=== PATIENT | female | born 1970 | race African-American/Black ===

== ENCOUNTER 2025-04-16 19:31 | Emergency (ER) | payer OTHER, SELFPAY ==
[2025-04-16 19:32] VITALS: BP 169/85
[2025-04-16 23:15] LABS: Urine Albumin Negative (Neg - Trace); Urine Bilirubin Negative (Negative); Urine Character Clear (Clear); Urine Color Yellow; Urine Glucose Negative (Negative); Urine Ketone Negative (Negative); Urine Leukocyte Negative (Negative); Urine Nitrite Negative (Negative); Urine Occult Blood Negative (Negative); Urine Urobilinogen Negative (Neg - 1+)
[2025-04-16 23:17] LABS: % Basophils 0.6 % (0-2); % Eosinophils 1.4 % (0-6); % Immature Granulocytes 0.3 % (0-0.5); % Lymphocytes 24.2 % (20.5-51.1); % Neutrophils 64.5 % (42.2-75.2); Absolute Basophils 0.1 10^3/uL (0-0.2); Absolute Eosinophils 0.1 10^3/uL (0-0.7); Absolute Lymphocytes 2.3 10^3/uL (1.2-3.4); Absolute Monocytes 0.9 10^3/uL (0.1-0.6); Absolute Neutrophils 6.2 10^3/uL (1.4-6.5); Hematocrit 41.7 % (37.0-47.0); Hemoglobin 14.2 g/dL (12.0-16.0); Mean Corp Hgb Conc. 34.1 g/dL (33.0-37.0); Mean Corpuscular Hgb 27.7 pg (27.0-31.0); Mean Corpuscular Volume 81.4 fL (81.0-99.0); Mean Platelet Volume 9.5 fL (7.4-10.4); Nucleated Red Blood Cells % 0 %; Platelet Count 231 10^3/uL (130-400); Red Blood Cell Count 5.12 10^6/uL (4.20-5.40); Red Cell Dist. Width 14.5 % (11.5-14.5); White Blood Cell Count 9.7 10^3/uL (4.8-10.8)
[2025-04-16 23:37] LABS: ALT (SGPT) 22 U/L (0-35); AST (SGOT) 17 U/L (14-36); Albumin 3.9 g/dl (3.5-5.0); Alkaline Phosphatase 93 U/L (38-126); Blood Urea Nitrogen 9 mg/dl (7-17); Calcium 8.9 mg/dl (8.4-10.2); Carbon Dioxide 26 mmol/L (22-30); Chloride 109 mmol/L (98-107); Glucose 99 mg/dl (70-99); Lipase 38 U/L (23-300); Potassium 3.9 mmol/L (3.5-5.1); Sodium 139 mmol/L (135-145); Total Bilirubin 0.7 mg/dl (0.2-1.3); Total Protein 6.7 g/dl (6.3-8.2); eGFR > 60.00
--- NOTE | 2025-04-16 23:43 | ED.GENMED ---
History of Present Illness
<Alissa Terrazas NP - Last Filed: 04/19/25 21:47>
General
Chief Complaint: Abdominal Pain
Source: patient
Exam Limitations: none
Time Seen by Provider: 04/16/25 22:19
Nursing documentation reviewed up to this point in time: agreed with
History of Present Illness
History of Present Illness:
Patient to ED with complaint of left sided abd. pain. Symptoms started 3 days ago. Reports nausea, no v/d. States she is prescribed Monjaro for weight management. Sent to ED by PCP wtih concern for liver/pancreas source.
Past History
<Alissa Terrazas NP - Last Filed: 04/19/25 21:47>
Past History
ED Past Medical History: Other
ED Past Surgical History: Other (gastric band)
Social History
Tobacco: Non-smoker
Alcohol: Other
Drug: None
Personal: Other
Living: with family
Employment: Employed
Family History
Family History: Other
Review of Systems
<Alissa Terrazas NP - Last Filed: 04/19/25 21:47>
Review of Systems
Allergies reviewed?: Yes
All Other Systems: ROS reviewed and negative except as documented in HPI and ROS
Constitutional: Reports no symptoms
EENT: Reports no symptoms
Respiratory: Reports no symptoms
Cardiac: Reports no symptoms
ABD/GI: Reports abdominal pain (left sided abd. pain) and nausea
: Reports no symptoms
Musculoskeletal: Reports no symptoms
Skin: Reports no symptoms
Neurological: Reports no symptoms
Psychiatric: Reports no symptoms
Phy Exam
<Alissa Terrazas NP - Last Filed: 04/19/25 21:47>
General Physical Exam
General Presentation: moderate distress
General age: appears stated age
General Skin: warm and dry
General Habitus: normal
General Mental: alert
Cardiovascular Exam
Cardiovascular Exam: regular rate/rhythm and no edema
Gastrointestinal Exam
Gastrointestinal Exam: normal bowel sounds, soft, no organomegaly, no pulsatile mass, non distended and no cva tenderness
Palpation: left upper quadrant: Moderate tenderness, left lower quadrant: Moderate tenderness, right upper quadrant: No tenderness and right lower quadrant: No tenderness
Musculoskeletal Exam
Musculoskeletal Exam: full ROM and neuro vasc intact
Skin Exam
Skin Exam: normal color, warm/dry and no rash
Psychiatric Exam
Psychiatric Exam: normal mood/affect
Course
<Alissa Terrazas NP - Last Filed: 04/19/25 21:47>
Orders/Labs/Results
Orders:
Orders
04/16/25 23:05
Complete Blood Count/With Diff Urgent
04/16/25 23:08
Comprehensive Metabolic Panel Urgent
Lipase Urgent
Urinalysis Reflex To Culture Urgent
Date Specimen was Collected: 04/16/25
Time Specimen was Collected: 23:06
Iohexol [Omnipaque] See Protocol PO NOW STA
04/17/25
CT Abd/pelvis W Iv Cont Urgent
Reason For Exam: left abd pain
Abnormal Lab Results
04/16/25 04/16/25
23:05 23:08
Absolute Monos (auto) 0.9 H 10^3/uL
(0.1-0.6)
Chloride 109 H mmol/L
(98-107)
04/16/25 23:05
04/16/25 23:08
Vital Signs
Initial and Last Documented VS:
Initial Vital Signs
Temp Pulse Resp BP Pulse Ox
98.8 F 82 16 169/85 99
04/16/25 19:32 04/16/25 19:32 04/16/25 19:32 04/16/25 19:32 04/16/25 19:32
Last Documented Vital Signs
Temp Pulse Resp BP Pulse Ox
98.8 F 80 16 165/79 99
04/16/25 19:32 04/17/25 03:21 04/17/25 03:21 04/17/25 03:21 04/17/25 03:21
<Gerald Sullivan, DO - Last Filed: 04/17/25 02:57>
Orders/Labs/Results
Orders:
Orders
04/16/25 23:05
Complete Blood Count/With Diff Urgent
04/16/25 23:08
Comprehensive Metabolic Panel Urgent
Lipase Urgent
Urinalysis Reflex To Culture Urgent
Date Specimen was Collected: 04/16/25
Time Specimen was Collected: 23:06
Iohexol [Omnipaque] See Protocol PO NOW STA
04/17/25
CT Abd/pelvis W Iv Cont Urgent
Reason For Exam: left abd pain
Abnormal Lab Results
04/16/25 04/16/25
23:05 23:08
Absolute Monos (auto) 0.9 H 10^3/uL
(0.1-0.6)
Chloride 109 H mmol/L
(98-107)
04/16/25 23:05
04/16/25 23:08
Vital Signs
Initial and Last Documented VS:
Initial Vital Signs
Temp Pulse Resp BP Pulse Ox
98.8 F 82 16 169/85 99
04/16/25 19:32 04/16/25 19:32 04/16/25 19:32 04/16/25 19:32 04/16/25 19:32
Last Documented Vital Signs
Temp Pulse Resp BP Pulse Ox
98.8 F 80 16 165/79 99
04/16/25 19:32 04/17/25 03:21 04/17/25 03:21 04/17/25 03:21 04/17/25 03:21
<Gerald Sullivan DO - Last Filed: 04/17/25 02:57>
*Pulse Oximetry
Patient hypoxic: no (Pulse ox is 97% on room air)
*Critical Care Note
Total Time (30-74mins, 75-104mins- exclusive of procedures): 31 (Critical care statement: A total of 31 minutes of critical care time was provided for this patient. This time is separate from time utilized to perform the aforementioned documented
procedures. Aggregate critical care time includes only time during which I was engaged in work directl)
<Gerald Sullivan DO - Last Filed: 04/17/25 02:57>
Update Note
Update Note:
NAME: ROSLYN MARKS
DATE OF EXAM: 04/17/2025
Patient No: [id number]
Physician: JOSE
Date of : 1970
Past Medical History (entered by Technologist):
Reason For Exam (entered by Technologist):
Other Notes (entered by Technologist): Pt states she's been on Monjaro since August, c/o abd pain since Sunday. Denies N/V, denies diarrhea.
Additional Information (per [facility]):
CT ABDOMEN AND PELVIS WITH IV CONTRAST
Comparison: None available
IMPRESSION:
--Gastric lap band is present. Phi angle is borderline elevated at approximately 60 degrees, which can indicate some degree of slippage.
--There is a discontinuity of the tubing in the left anterior abdomen just deep to the body wall (series 201, image 38) with surrounding loculated fluid, measuring approximately 8.0 x 4.1 x 7.9 cm. This suggests there is likely leakage of fluid
from the tube discontinuity. Can correlate clinically for infected collection.
--Recommend bariatric surgical referral/consultation for further management as removal or revision of the tubing and lap band is likely warranted.
Additional small volume free fluid in the lower abdomen and pelvis. No free air.
No evidence for bowel obstruction. Appendix is normal.
Suggestion of hepatic steatosis.
Pancreas, gallbladder, and kidneys are unremarkable.
Hysterectomy.
Report sent at 1:42 AM ET. If there are any questions, please contact [facility] at [phone].
Spoke with Dr Miller, having to gastroenterology. We reviewed the CT scan findings. He feels that it is safe to send her home. There is an appointment scheduled on Sunday. We will give the patient a copy of her CD and [facility] report.
Patient to follow-up
ED Attending Note
<Alissa Terrazas NP - Last Filed: 04/19/25 21:47>
-
Portions of this chart may have been created with voice recognition software.� Occasional wrong word or��sound alike� substitutions may have occurred due to the inherent limitations of voice recognition software.
Discharge Plan
Departure
Patient Disposition: Home (Routine Discharge)
Date of Disposition: 04/17/25
Time of Disposition: 02:53
Patient with high blood pressure during this ER visit?: No
Condition: Good
Discharge Problem:
Abdominal pain
Instructions: Abdominal Pain
Prescriptions:
No Action
prednisone 20 mg tablet
20 mg PO DAILY 4 Days Qty: 6 0RF
Rx Instructions:
Take 2 tablets on Day 1 and Day 2
Take 1 tablet on Day 3 and Day 4
cyclobenzaprine 10 mg tablet
10 mg PO TIDPRN PRN (Reason: muscle spasm) Qty: 13 0RF
Referrals:
Esa Jacobo MD [Family Provider, Family Practice] - Tomorrow
Activity Restrictions/Additional Instructions:
Return to the emergency department immediately for any changes in/worsening of your symptoms
Please bring the CD provided to your appointment with gastroenterology on Sunday.
Thank You for choosing [facility].
It was a pleasure meeting you and taking part in your care. We hope for your continued healing and wellness.
Please read discharge instructions in their entirety. However, they are for general education and may not describe your exact diagnosis at discharge. Information on your ER visit and medical conditions were discussed with you along with appropriate
follow up information...
If indicated, please take your medications as instructed and indicated on discharge paperwork.
Please schedule a follow up appointment as directed. Call to schedule an appointment
Please return to the emergency department with ANY change in, persisting, or worsening of symptoms. If any of your symptoms do not improve, or persist, or become more severe within 6-12 hours, please return to the emergency department for further
care.
Please return to the emergency department if you develop a headache, neck pain/stiffness, fever greater than 100.4F, chest pain, shortness of breath, persistent nausea, vomiting, slurred speech, difficulty walking, numbness/tingling, weakness, signs
of infection or any other symptoms that are worrisome to you.
If you have any questions or concerns please do not hesitate to call the Hospital at or E-mail me directly at [email or web address]
Interventions
Interventions:
*Risk Screen - Suicide Last Done: 04/17/25 03:21
*General Assessment Last Done: 04/17/25 03:21
*Neglect/Abuse Screening Last Done: 04/17/25 03:21
*Nursing Disposition Last Done: 04/17/25 03:21
LV-Ltofar-[id number] Assessment Last Done: 04/16/25 22:31
Discharge Date and Time
Discharge Date/Time: 04/17/25 03:21
Print Language: TAMAZIGHT
[2025-04-17 03:21] VITALS: BP 165/79
== END 2025-04-17 03:21 | disposition home or self-care (01) ==
LOC: EMR 19:31
PROVIDERS: Nurse Practitioner; EMERGENCY PHYSICIAN Emergency Medicine; FAMILY PHYSICIAN Family Medicine
DX: R10.9 Unspecified abdominal pain (principal); R11.0 Nausea; Z71.3 Dietary counseling and surveillance; Z90.710 Acquired absence of both cervix and uterus
CPT/HCPCS: 99284; 74177; 80053; 81003; 83690; 85025; Q9967